=== PATIENT | male | born 1995 | race Caucasian/White ===

== ENCOUNTER → 2017-08-15 15:44 | Emergency (ER) | payer OTHER ==
[~2017-08-15 15:44] MED LIST: Cyclopentolate 1% OPTH.SOL* 2 ML BTL SCH; prednisoLONE 1% OPHTH.SUSP* 5 ML OPHTH.SUSP SCH
--- NOTE | 2017-08-15 22:47 | ED ---
Valeria Medina Rebecca, scribed for [email or web address] on 08/15/17 at 2238 . Complex/Multi-Sys Presentation - HPI Summary HPI Summary: Pt is a 22 y/o M who presents to ED c/o L eye blurred vision and pain s/p injury. At approximately 1600 today, the pt's friend was playing with a plastic toy revolver and when he went to close it, the revolving portion flew off and hit the pt in the L eye. Portion that injured the eye was made of hard plastic. Pain was noted to be mild, ranked 3/10 and characterized as an ache. Pt confirms that he is able to see from both eyes, but the L eye vision is blurred. Sx aggravated and alleviated by nothing. Tetanus UTD. - History Of Current Complaint Chief Complaint: EDEyeProblem Time Seen by Provider: 08/15/17 19:32 Hx Obtained From: Patient Onset/Duration: Still Present Severity Currently: Mild Location: Pain At: - L eye Aggravating Factor(s): Nothing Alleviating Factor(s): Nothing Associated Signs And Symptoms: Positive: Other - Blurred vision - Allergies/Home Medications Allergies/Adverse Reactions: Allergies Allergy/AdvReac Type Severity Reaction Status Date / Time No Known Allergies Allergy Verified 08/15/17 20:34 PMH/Surg Hx/FS Hx/Imm Hx Previously Healthy: Yes Endocrine/Hematology History: Denies: Hx Diabetes Cardiovascular History: Denies: Hx Hypertension Infectious Disease History: No Infectious Disease History: Denies: Traveled Outside the [place] in Last 30 Days - Family History Known Family History: Negative: Diabetes - Social History Alcohol Use: Occasionally Substance Use Type: Reports: None Smoking Status (MU): Never Smoked Tobacco Review of Systems Negative: Fever Positive: Blurred Vision - Left, Other - L eye pain All Other Systems Reviewed And Are Negative: Yes Physical Exam - Summary Physical Exam Summary: Appearance: Well appearing, no pain distress Skin: warm, dry, reflects adequate perfusion Head/face: normal Eyes: Blood in the anterior chamber of the L eye, EOMI, EM ENT: normal Neck: supple, nontender Respiratory: CTA, breath sounds present Cardiovascular: RRR, pulses symmetrical Abdomen: nontender, soft Bowel: present Musculoskeletal: normal, strength/ROM intact Neuro: normal, sensory motor intact, A&Ox3 Triage Information Reviewed: Yes Vital Signs On Initial Exam: Initial Vitals Temp Pulse Resp BP Pulse Ox 98.2 F 54 20 144/75 100 08/15/17 16:01 08/15/17 16:01 08/15/17 16:01 08/15/17 16:01 08/15/17 16:01 Vital Signs Reviewed: Yes - [place] Coma Scale Coma Scale Total: 15 Diagnostics - Vital Signs Vital Signs Temp Pulse Resp BP Pulse Ox 08/15/17 18:40 98.9 F 86 20 143/69 96 08/15/17 17:21 98.2 F 72 18 159/61 98 08/15/17 16:01 98.2 F 54 20 144/75 100 - Laboratory Lab Statement: Any lab studies that have been ordered have been reviewed, and results considered in the medical decision making process. Re-Evaluation - Re-Evaluation First Eval Re-Evaluation Time: 20:00 Change: Unchanged Comment: Explained that Dr. Zamora will be coming in. Complex Multi-Symp Course/Dx Assessment/Plan: Pt is a 22 y/o M who presents to ED c/o L eye blurred vision and pain s/p injury. At approximately 1600 today, the pt's friend was playing with a plastic toy revolver and when he went to close it, the revolving portion flew off and hit the pt in the L eye. Portion that injured the eye was made of hard plastic. Pain was noted to be mild, ranked 3/10 and characterized as an ache. Pt confirms that he is able to see from both eyes, but the L eye vision is blurred. Sx aggravated and alleviated by nothing. Tetanus UTD. Discussed care of pt with Dr Zamora who will evaluate the pt in the ED. In the ED course , pt received Cyclogyl and Pred Forte. Pt will be D/C to home with Dx of anterior hyphema with a follow up with Dr. Zamora on Thursday. He understands and agrees. Elevated BP noted. Pt medications reviewed. - Diagnoses Provider Diagnoses: Anterior hyphema - Physician Notifications Discussed Care Of Patient With: Benedicto Zamora Time Discussed With Above Provider: 19:54 Instructed by Provider To: Other - Will evaluate the pt in the ED Discharge - Discharge Plan Condition: Stable Disposition: HOME Patient Education Materials: Hyphema (ED) Referrals: Benedicto Zamora MD [Medical Doctor] - 08/17/17 (Follow up with Dr. Zamora on Thursday. ) Non Staff,Doctor [Primary Care Provider] - The documentation as recorded by the Valeria elliott Rebecca accurately reflects the service I personally performed and the decisions made by me, Kt Thapa.
[2017-08-15 22:55] VITALS: BP 139/78
== END | disposition home or self-care (01) ==
LOC: ED 15:44
DX: S05.12XA Contusion of eyeball and orbital tissues, left eye, initial encounter (principal); W22.8XXA Striking against or struck by other objects, initial encounter; Y92.9 Unspecified place or not applicable
CPT/HCPCS: 99283; A9270-GY